=== PATIENT | male | born 1975 | race Caucasian/White ===

== ENCOUNTER 2020-02-15 18:42 | Emergency (ER) | payer BC ==
[2020-02-15 19:30] LABS: Absolute Lymphocytes (CBC) 3.4 K/uL (0.7-4.9); Basophils % 0.5 % (0-1.3); Hematocrit 39.9 % (39.6-49.0); Lymphocytes % 41.3 % (15.3-44.8); MPV 8.8 fL (7.6-11.3); RBC Red Blood Cell Count 4.57 M/uL (4.33-5.43)
[2020-02-15] MEDS ORDERED: NA CHLORIDE 0.9% 1,000 ML ONE (19:47)
[2020-02-15] MEDS ORDERED: PANTOPRAZOLE 40 MG INJ ONE (19:47)
[2020-02-15] MEDS ORDERED: WATER FOR INJ,STERILE 10 ML ONE (19:47)
[2020-02-15 19:49] LABS: Potassium 3.9 mmol/L (3.5-5.1)
--- NOTE | 2020-02-15 20:50 | RAD REPORT ---
EXAM DESCRIPTION: CT - Abdomen Pelvis W Contrast - 02/15/2020 8:10 pm CLINICAL HISTORY: GI BLEED COMPARISON: <Comparisons> TECHNIQUE: Biphasic, helical CT imaging of the abdomen and pelvis was performed following 100 ml non -ionic IV contrast. No oral contrast administered. All CT scans are performed using dose optimization technique as appropriate and may include automated exposure control or mA/KV adjustment according to patient size. FINDINGS: No suspicious findings in the lung bases. The liver, spleen, and pancreas show no suspicious findings. Gallbladder and biliary tree are also wi thout suspicious finding. Symmetric renal function is seen with no hydronephrosis or suspicious renal mass. No pyelonephritis o r acute parenchymal process. No bladder abnormalities. No adrenal abnormalities. No gastric dilatation or gastric wall thickening. No small bowel abnormality seen. No appendicitis fi ndings. No colon wall thickening or mass identifiable. Mild left-sided diverticulosis present without diverticulitis. No edema or stranding in the fat adjacent to the colon. No free air, free fluid or inflammatory stranding. No hernia, mass or bulky lymphadenopathy. No suspicious bony findings. Report was delayed due to difficulty with imaged transmission. IMPRESSION: Contrast enhanced CT abdomen and pelvis showing no acute or emergent finding. Nonacute findings detailed in the body of the report.
--- NOTE | 2020-02-15 21:03 | ER ---
Nurse's Notes [facility] Name: Dylon Anderson Jr Age: 45 yrs Sex: Male : 1975 Arrival Date: 02/15/2020 Time: 18:47 Bed 20 Private MD: Diagnosis: Gastrointestinal hemorrhage, unspecified Presentation: 02/14 18:54 Chief complaint: Patient states: Pt reports blood in stool for the last 3 BMS today. ae4 Reports thaey are "dark maroon". Coronavirus screen: Client indicates they have traveled out of the [place] in the last 14 days. diarrhea. Ebola Screen: Patient denies travel to an Ebola-affected area in the 21 days before illness onset. No symptoms or risks identified at this time. 18:54 Method Of Arrival: Ambulatory ae4 18:58 Acuity: CRISTIANE 3 ae4 19:32 Initial Sepsis Screen: Does the patient meet any 2 criteria? No. Patient's initial jv1 sepsis screen is negative. Does the patient have a suspected source of infection? No. Patient's initial sepsis screen is negative. Risk Assessment: Do you want to hurt yourself or someone else? Patient reports no desire to harm self or others. 19:33 Onset of symptoms was February 15, 2020. jv1 Triage Assessment: 18:56 General: Appears in no apparent distress. Behavior is cooperative, anxious. Pain: ae4 Denies pain. Neuro: Level of Consciousness is awake, alert, obeys commands, Oriented to person, place, time, situation, Appropriate for age. Respiratory: Airway is patent Respiratory effort is even, unlabored, Respiratory pattern is regular, symmetrical. GI: Abdomen is round distended. Historical: - Allergies: 18:56 No Known Allergies; ae4 - Home Meds: 18:56 amlodipine 2.5 mg oral tab [Active]; ae4 - PMHx: 18:56 Hyperlipidemia; Hypertension; unknown "statin" for BP; ae4 - PSHx: 18:56 None; ae4 - Immunization history:: Last tetanus immunization: up to date Flu vaccine is not up to date. - Social history:: Smoking status: Patient denies any tobacco usage or history of. Screenin:31 Abuse screen: Denies threats or abuse. Nutritional screening: No deficits noted. jv1 Tuberculosis screening: No symptoms or risk factors identified. Fall Risk None identified. Assessment: 19:28 General: Appears in no apparent distress. comfortable, well groomed, well developed, jv1 Behavior is calm, cooperative, appropriate for age. Pain: Denies pain. Neuro: Level of Consciousness is awake, alert, obeys commands, Oriented to person, place, time, situation, Nuclear Equipment Sales Engineer are Moves all extremities. Cardiovascular: Denies chest pain, Heart tones S1 S2 Capillary refill < 3 seconds. Respiratory: Airway is patent Respiratory effort is even, unlabored, Respiratory pattern is regular, symmetrical, Breath sounds are clear bilaterally. GI: Bowel sounds present X 4 quads. Reports bloody stool. : No signs and/or symptoms were reported regarding the genitourinary system. EENT: No signs and/or symptoms were reported regarding the EENT system. Derm: No signs and/or symptoms reported regarding the dermatologic system. Skin is intact, is healthy with good turgor, Skin is pink, warm \\T\\ dry. Musculoskeletal: Circulation, motion, and sensation intact. Capillary refill < 3 seconds, Range of motion: intact in all extremities. 20:45 Reassessment: Patient appears in no apparent distress at this time. Patient and/or ca1 family updated on plan of care and expected duration. Pain level reassessed. Patient is alert, oriented x 3, equal unlabored respirations, skin warm/dry/pink. 21:32 Reassessment: Patient appears in no apparent distress at this time. Patient is alert, ca1 oriented x 3, equal unlabored respirations, skin warm/dry/pink. Vital Signs: 18:56 BP 133 / 85; Pulse 100; Resp 17; Temp 98.2; Pulse Ox 99% on R/A; Weight 104.33 kg (R); ae4 Height 5 ft. 10 in. (177.80 cm); Pain 0/10; 20:45 BP 110 / 71; Pulse 89; Resp 18 S; Pulse Ox 97% on R/A; ca1 21:32 BP 109 / 72; Pulse 86; Resp 16 S; Pulse Ox 98% on R/A; ca1 18:56 Body Mass Index 33.00 (104.33 kg, 177.80 cm) ae4 ED Course: 18:47 Patient arrived in ED. bg2 18:56 Mariana Davis FNP-C [facility]. kb 18:56 Owen Esparza MD is Attending Physician. kb 18:58 Triage completed. ae4 18:59 Arm band placed on right wrist. ae4 19:21 No provider procedures requiring assistance completed. Initial lab(s) drawn, by me, ca1 sent to lab. Inserted saline lock: 20 gauge in right antecubital area, using aseptic technique. Blood collected. 19:32 Patient has correct armband on for positive identification. Side rails up X2. Adult w/ jv1 patient. 20:10 CT Abd/Pelvis - IV Contrast Only In Process Unspecified. EDMS 21:33 IV discontinued, intact, bleeding controlled, No redness/swelling at site. Pressure ca1 dressing applied. Administered Medications: 19:42 Drug: ProTONIX 40 mg Route: IVP; Site: right antecubital; jv1 21:33 Follow up: Response: No adverse reaction ca1 19:43 Drug: NS 0.9% 1000 ml Route: IV; Rate: 1000 ml; Site: right antecubital; jv1 21:33 Follow up: Response: No adverse reaction; IV Status: Completed infusion; IV Intake: ca1 1000ml Intake: 21:33 IV: 1000ml; Total: 1000ml. ca1 Outcome: 21:01 Discharge ordered by . kb 21:33 Discharged to home ambulatory, with significant other. ca1 21:33 Condition: stable 21:33 Discharge instructions given to patient, Instructed on discharge instructions, follow up and referral plans. medication usage, Demonstrated understanding of instructions, follow-up care, medications, Prescriptions given X 1. 21:33 Patient left the ED. ca1 Signatures: Dispatcher [employer] EDMS Mariana Davis, JAJA-Elver LENS FINISHER-Ladi Hernandez 2 Diandra Parekh, RN RN jv1 Yennifer Worthington, RN RN ca1 Kwasi Garcia, RN RN ae4
--- NOTE | 2020-02-15 21:03 | EDPHYS ---
Physician Documentation [facility] Name: Dylon Andersno Jr Age: 45 yrs Sex: Male : 1975 Arrival Date: 02/15/2020 Time: 18:47 Bed 20 Private MD: ED Physician Owen Esparza HPI: 02/14 20:43 This 45 yrs old Male presents to ER via Ambulatory with complaints of GI kb Bleeding. 20:44 The patient presents to the emergency department with rectal bleeding, a small amount, kb dark red blood with bowel movement 3 times since symptom onset. Onset: The symptoms/episode began/occurred this morning. Abdominal pain: none is appreciated. Modifying factors: The symptoms are alleviated by nothing, the symptoms are aggravated by nothing. Associated signs and symptoms: The patient has no apparent associated signs or symptoms. Severity of symptoms: At their worst the symptoms were mild in the emergency department the symptoms are unchanged. The patient has not experienced similar symptoms in the past. The patient has not recently seen a physician. Pt reports he has had 3 bowel movements today and they have been a maroon color. Denies any other symptoms. Historical: - Allergies: 18:56 No Known Allergies; ae4 - Home Meds: 18:56 amlodipine 2.5 mg oral tab [Active]; ae4 - PMHx: 18:56 Hyperlipidemia; Hypertension; unknown "statin" for BP; ae4 - PSHx: 18:56 None; ae4 - Immunization history:: Last tetanus immunization: up to date Flu vaccine is not up to date. - Social history:: Smoking status: Patient denies any tobacco usage or history of. ROS: 20:45 Constitutional: Negative for fever, chills, and weight loss, Cardiovascular: Negative kb for chest pain, palpitations, and edema, Respiratory: Negative for shortness of breath, cough, wheezing, and pleuritic chest pain, Back: Negative for injury and pain, MS/Extremity: Negative for injury and deformity, Skin: Negative for injury, rash, and discoloration, Neuro: Negative for headache, weakness, numbness, tingling, and seizure. 20:45 Abdomen/GI: Positive for black/tarry stool. Exam: 20:46 Constitutional: This is a well developed, well nourished patient who is awake, alert, kb and in no acute distress. Head/Face: Normocephalic, atraumatic. Chest/axilla: Normal chest wall appearance and motion. Nontender with no deformity. No lesions are appreciated. Cardiovascular: Regular rate and rhythm with a normal S1 and S2. No gallops, murmurs, or rubs. Normal PMI, no JVD. No pulse deficits. Respiratory: Lungs have equal breath sounds bilaterally, clear to auscultation and percussion. No rales, rhonchi or wheezes noted. No increased work of breathing, no retractions or nasal flaring. Abdomen/GI: Soft, non-tender, with normal bowel sounds. No distension or tympany. No guarding or rebound. No evidence of tenderness throughout. Skin: Warm, dry with normal turgor. Normal color with no rashes, no lesions, and no evidence of cellulitis. MS/ Extremity: Pulses equal, no cyanosis. Neurovascular intact. Full, normal range of motion. Neuro: Awake and alert, GCS 15, oriented to person, place, time, and situation. Cranial nerves II-XII grossly intact. Motor strength 5/5 in all extremities. Sensory grossly intact. Cerebellar exam normal. Normal gait. 20:46 Abdomen/GI: Rectal exam: rectal tone normal, Stool: guaiac positive, maroon, the exam is chaperoned by a family member. Vital Signs: 18:56 BP 133 / 85; Pulse 100; Resp 17; Temp 98.2; Pulse Ox 99% on R/A; Weight 104.33 kg (R); ae4 Height 5 ft. 10 in. (177.80 cm); Pain 0/10; 20:45 BP 110 / 71; Pulse 89; Resp 18 S; Pulse Ox 97% on R/A; ca1 21:32 BP 109 / 72; Pulse 86; Resp 16 S; Pulse Ox 98% on R/A; ca1 18:56 Body Mass Index 33.00 (104.33 kg, 177.80 cm) ae4 MDM: 18:56 Patient medically screened. 20:46 Data reviewed: vital signs, nurses notes. Data interpreted: Pulse oximetry: on room air kb is 99 %. Interpretation: normal. 20:56 Data reviewed: I have discussed the patient's presentation/case with the attending Emergency Department Physician;. Counseling: I had a detailed discussion with the patient and/or guardian regarding: the historical points, exam findings, and any diagnostic results supporting the discharge/admit diagnosis, lab results, radiology results, the need for outpatient follow up, a family practitioner, a protection officer, to return to the emergency department if symptoms worsen or persist or if there are any questions or concerns that arise at home. 21:00 ED course: Discussed all findings with pt and spouse (who is a PA). All in agreement kb with outpatient follow up because of stable condition. Pt educated on return precautions and will return for any other concerns. Will call DR Zuniga in the morning for GI recommendation. . 02/14 19:11 Order name: Basic Metabolic Panel; Complete Time: 19:56 kb 02/14 19:11 Order name: CBC with Diff; Complete Time: 19:48 kb 02/14 19:11 Order name: IV Saline Lock; Complete Time: 19:21 kb 02/14 19:24 Order name: CT Abd/Pelvis - IV Contrast Only; Complete Time: 20:53 kb 02/14 19:11 Order name: Labs collected and sent; Complete Time: 19:21 kb 02/14 20:44 Order name: Vital Signs; Complete Time: 20:54 kb Administered Medications: 19:42 Drug: ProTONIX 40 mg Route: IVP; Site: right antecubital; jv1 21:33 Follow up: Response: No adverse reaction ca1 19:43 Drug: NS 0.9% 1000 ml Route: IV; Rate: 1000 ml; Site: right antecubital; jv1 21:33 Follow up: Response: No adverse reaction; IV Status: Completed infusion; IV Intake: ca1 1000ml Disposition: 02/15 11:03 Co-signature as Attending Physician, Owen Esparza MD. rn Disposition: 02/15/20 21:01 Discharged to Home. Impression: Gastrointestinal hemorrhage, unspecified. - Condition is Stable. - Discharge Instructions: Gastrointestinal Bleeding. - Prescriptions for Protonix 40 mg Oral Tablet - take 1 tablet by ORAL route once daily; 30 tablet. - Medication Reconciliation Form, Thank You Letter, Antibiotic Education, Prescription Opioid Use form. - Follow up: Emergency Department; When: As needed; Reason: Worsening of condition. Follow up: Private Physician; When: 2 - 3 days; Reason: Recheck today's complaints, Continuance of care, Re-evaluation by your physician. Signatures: Dispatcher [employer] EDMariana Waddell FNP-C HOSE TENDER-Ckb Owen Esparza MD MD rn Diandra Parekh, RN RN jv1 Acob, Yennifer, RN RN ca1 Kwasi Garcia, TRUMAN RN ae4 Corrections: (The following items were deleted from the chart) 02/14 20:44 20:44 Orthostatics ordered. kb kb 20:46 20:45 Abdomen/GI: Positive for rectal bleeding, kb kb 21:33 21:01 02/15/2020 21:01 Discharged to Home. Impression: Gastrointestinal hemorrhage, ca1 unspecified. Condition is Stable. Forms are Medication Reconciliation Form, Thank You Letter, Antibiotic Education, Prescription Opioid Use. Follow up: Emergency Department; When: As needed; Reason: Worsening of condition. Follow up: Private Physician; When: 2 - 3 days; Reason: Recheck today's complaints, Continuance of care, Re-evaluation by your physician. kb
[2020-02-16 03:05] VITALS: TEMP 98.2
[2020-02-16 03:12] VITALS: BP 109/72; O2SAT 98
== END 2020-02-15 21:33 | disposition home or self-care (01) ==
LOC: ER 18:42
DX: K92.2 Gastrointestinal hemorrhage, unspecified (principal); I10 Essential (primary) hypertension
CPT/HCPCS: 96361; 85025; 80048; 36415; 74177; 96374; 99284; Q9967; C9113; J7030